=== PATIENT | male | born 1950 | race Hispanic/Latino ===

== ENCOUNTER 2021-08-28 08:37 | Outpatient (CLI) | payer BC | END 2021-08-28 08:38 | disposition home or self-care (01) | LOC: CSHCT 08:37 | PROVIDERS: ATTEND Physician Assistant Medical | DX: G44.52 New daily persistent headache (NDPH) (principal); G44.84 Primary exertional headache; I77.1 Stricture of artery | CPT/HCPCS: 70496; 82565 ==

== ENCOUNTER 2022-05-19 08:24 | Outpatient (CLI) | payer BC ==
[2022-05-19] MEDS ORDERED: Magnevist 469MG/ML 20 ML VIAL ONE (09:01)
== END 2022-05-19 08:25 | disposition home or self-care (01) ==
LOC: CSHMRI 08:24
PROVIDERS: ATTEND Psychiatry & Neurology Neurology
DX: G44.83 Primary cough headache (principal)
CPT/HCPCS: 70544; 70553; 82565